=== PATIENT | male | born 1960 | race Caucasian/White ===

== ENCOUNTER 2017-07-12 03:21 | Emergency (ER) | payer MEDICAID ==
[~2017-07-12] VITALS: Ht 175.3 cm; Wt 107.0 kg
[2017-07-12 03:29] VITALS: Ht 175.3 cm; Wt 107.0 kg
[2017-07-12] MEDS ORDERED: SOD CHLORIDE 0.9% 1,000 ML IV STA (04:16)
[2017-07-12] MEDS ORDERED: KETOROLAC 30 MG INJ IV STA (04:16)
--- NOTE | 2017-07-12 05:23 | ERD ---
ER Documentation Chief Complaint Chief Complaint Lt back pain s/p getting up in bed 2hrs [employer]. Tylenol taken at 0215 HPI 57-year-old male presents here to emergency department for complaints of left lower back pain after after getting up in bed tonight. Patient describes the pain as sharp pain, 6/10 scale, as was upon movement, suddenly felt diaphoretic , was nauseated and felt slight dizziness. Patient denies any chest pain or palpitations. Patient denies any shortness of breath. Patient states that His blood pressure was lower at home. ROS All systems reviewed and are negative except as per history of present illness. Medications Home Meds Active Scripts Tamsulosin Hcl* (Flomax*) 0.4 Mg Cap.er.24h, 0.4 MG PO QPM, #30 CAP Prov:SRAVAN CARRION [facility] [employer] 07/12/17 Cyclobenzaprine Hcl* (Cyclobenzaprine Hcl*) 10 Mg Tablet, 10 MG PO TID, #15 TAB Prov:SRAVAN CARRION NP 07/12/17 Hydrocodone/Acetaminophen ([place] 5-325 Tablet) 1 Each Tablet, 1 TAB PO Q6H Y for SEVERE PAIN LEVEL 7-10, #20 TAB Prov:SRAVAN CARRION NP 07/12/17 Ibuprofen* (Motrin*) 600 Mg Tab, 600 MG PO Q6H Y for PAIN AND OR ELEVATED TEMP, #30 TAB Prov:SRAVAN CARRION NP 07/12/17 Reported Medications [none] Unknown Strength No Conflict Check 07/12/17 Allergies Allergies: Coded Allergies: No Known Allergy (Unverified , 07/12/17) PMhx/Soc Medical and Surgical Hx: pt denies Medical Hx, pt denies Surgical Hx History of Surgery: No Anesthesia Reaction: No Hx Neurological Disorder: No Hx Respiratory Disorders: No Hx Cardiac Disorders: No Hx Psychiatric Problems: No Hx Miscellaneous Medical Probl: No Hx Alcohol Use: No Hx Substance Use: No Hx Tobacco Use: No Smoking Status: Never smoker FmHx Family History: No coronary disease, No diabetes, No other Physical Exam Vitals Vital Signs Date Time Temp Pulse Resp B/P Pulse Ox O2 Delivery O2 Flow Rate FiO2 07/12/17 03:29 97.5 61 20 139/75 100 Physical Exam GENERAL: The patient is well developed and appropriate for usual state of health, in no apparent distress. CHEST: Clear to auscultation bilaterally. There are no rales, wheezes or rhonchi. HEART: Regular rate and rhythm. No murmurs, clicks, rubs or gallops. No S3 or S4. ABDOMEN: Soft, nontender and nondistended. Good bowel sounds. No rebound or guarding. No gross peritonitis. No gross organomegaly or masses. No Corley sign or McBurney point tenderness. BACK: No midline or flank tenderness. Muscle spasms noted in the left paraspinal aspect of the lumbar spine, able to do full range of motion without any restriction. EXTREMITIES: Equal pulses bilaterally. There is no peripheral clubbing, cyanosis or edema. No focal swelling or erythema. Full range of motion. Grossly neurovascularly intact. NEURO: Alert and oriented. Cranial nerves 2-12 intact. Motor strength in all 4 extremities with 5/5 strength. Sensation grossly intact. Normal speech and gait. SKIN: There is no apparent rash or petechia. The skin is warm and dry. HEMATOLOGIC AND LYMPHATIC: There is no evidence of excessive bruising or lymphedema. No gross cervical, axillary, or inguinal lymphadenopathy. Result Diagram: 07/12/17 0445 07/12/17 0445 Results 24 hrs Laboratory Tests Test 07/12/17 04:30 07/12/17 04:45 Urine Color YELLOW Urine Clarity CLEAR Urine pH 5.0 Urine Specific [place] 1.023 Urine Ketones NEGATIVEmg/dL Urine Nitrite NEGATIVEmg/dL Urine Bilirubin NEGATIVEmg/dL Urine Urobilinogen NEGATIVEmg/dL Urine Leukocyte Esterase NEGATIVELeu/ul Urine Microscopic RBC 104/HPF Urine Microscopic WBC 2/HPF Urine Mucus FEW/HPF Urine Hemoglobin 3+mg/dL Urine Glucose NEGATIVEmg/dL Urine Total Protein NEGATIVEmg/dl White Blood Count 13.810^3/ul Red Blood Count 4.9110^6/ul Hemoglobin 15.2g/dl Hematocrit 43.7% Mean Corpuscular Volume 89.0fl Mean Corpuscular Hemoglobin 31.0pg Mean Corpuscular Hemoglobin Concent 34.8g/dl Red Cell Distribution Width 12.6% Platelet Count 97518^3/UL Mean Platelet Volume 9.8fl Neutrophils % 83.9% Lymphocytes % 10.5% Monocytes % 3.7% Eosinophils % 0.9% Basophils % 0.6% Nucleated Red Blood Cells % 0.0/100WBC Neutrophils # 11.510^3/ul Lymphocytes # 1.410^3/ul Monocytes # 0.510^3/ul Eosinophils # 0.110^3/ul Basophils # 0.110^3/ul Nucleated Red Blood Cells # 0.010^3/ul Sodium Level 144mmol/L Potassium Level 3.6mmol/L Chloride Level 103mmol/L Carbon Dioxide Level 26mmol/L Anion Gap 19 Blood Urea Nitrogen 18mg/dl Creatinine 1.31mg/dl Glucose Level 144mg/dl Calcium Level 9.1mg/dl Total Bilirubin 0.7mg/dl Direct Bilirubin 0.00mg/dl Indirect Bilirubin 0.7mg/dl Aspartate Amino Transf (AST/SGOT) 24IU/L Alanine Aminotransferase (ALT/SGPT) 24IU/L Alkaline Phosphatase 128IU/L Total Protein 7.9g/dl Albumin 4.9g/dl Globulin 3.00g/dl Albumin/Globulin Ratio 1.63 Lipase 99U/L Current Medications Medications (Trade) Dose Ordered Sig/Андрей Route PRN Reason Start Time Stop Time Status Last Admin Dose Admin Sodium Chloride (NS) 1,000 ml @ 1,000 mls/hr Q1H STAT IV 07/12/17 04:16 07/12/17 05:15 DC 07/12/17 05:01 Ketorolac Tromethamine (Toradol) 30 mg ONCE STAT IV 07/12/17 04:16 07/12/17 04:18 DC 07/12/17 05:25 Lorazepam 0.5 mg 0.5 mg ONCE ONCE IV 07/12/17 06:00 07/12/17 06:01 DC 07/12/17 05:47 Sodium Chloride (NS) 100 ml @ ud STK-MED ONCE .ROUTE 07/12/17 05:59 07/12/17 06:00 DC Iohexol (Omnipaque 300mg/ ml) 150 ml STK-MED ONCE .ROUTE 07/12/17 05:59 07/12/17 06:00 DC Patient was given medication for pain here in emergency department, after treatment, patient verbalized feeling much better. Patient's pain is improved. Normal saline IV bolus was given here in emergency department for rehydration, patient tolerated IV fluids. PROCEDURE: CT L-Spine. CLINICAL INDICATION: Low back pain TECHNIQUE: A CT of the lumbar spine was performed on a [employer] 64-slice CT scanner utilizing high-resolution thin section axial images from the thoracic lumbar junction through the lumbar sacral junction. Sagittal and coronal and multiplanar reformatted images were made. The CTDIvol is 38.55 mGy and the DLP is 1412.53 mGycm. One of the following 3 dose reduction techniques were used during this CT examination: 1) Automated exposure control 2) Adjustment of the mA +/- kV according to patient size or 3) Use of iterative reconstruction technique COMPARISON: None available FINDINGS: The visualized spine alignment is normal. Preservation of vertebral body heights and disc spaces are noted. No acute fractures or traumatic subluxations are present. The bilateral posterior elements are intact and well aligned. The paravertebral soft tissues are normal. Minimal calcifications are present of the infrarenal abdominal aorta. Transitional anatomy is present. The inferior most disc is designated as L5-S1 . The specific axial levels are as follows: T12-L1: The intervertebral disc is normal. The central canal, subarticular recess and neural foramen are patent. L1-2: The intervertebral discs is normal. The central canal, subarticular recess and neural foramen are patent. L2-3: The intervertebral disc is normal. A mild 2 mm broad-based bulge is present. The central canal, subarticular recess and neural foramen are patent. L3-4: The intervertebral discs is normal with a mild 2 mm broad-based bulge. The central canal, subarticular recess, and neural foramen are patent. L4-5: The intervertebral discs is normal with a mild 2 mm annular bulge. A superimposed 4 mm central disc protrusion is present. AP canal dimension is 7.8 mm. Mild bilateral facet arthropathy right greater than left and vacuum facets are noted. The above findings results in a mild to moderate central canal stenosis, mild bilateral subarticular recess stenosis and mild bilateral neural foraminal stenosis. L5-1: Transitional anatomy is present. The central canal, subarticular recess and neural foramen are patent. IMPRESSION: 1. No acute fractures or traumatic subluxations. 2. Transitional anatomy. 3. 4 mm central disc protrusion at L4-5 with mild to moderate central canal stenosis. 4. Multilevel mild broad-based bulges at L2-3 through L4-5. 5. Mild bilateral subarticular recess and neural foraminal stenosis at L4-5. RPTAT: HDC .Maggie Banegas MD, MD Date Time Electronically viewed and signed by .Maggie Banegas MD, on 07/12/2017 05: 28 .C/ CC: SRAVAN CARRINO [facility] SU[facility] Procedures/MDM Medical Decision Making: Patient's pain is most likely consistent with a back strain can be from renal colic since patient has blood in the urine.. There is no suspicion for neurovascular compromise. Patient has intact sensation and circulation of the affected extremity and distal extremities. No incontinence, no suspicion for cauda equina syndrome, no saddle anesthesia, no symptoms of any acute bacterial infection, no symptoms of any perirectal abscesses, pilonidal cyst.There is low suspicion for septic arthritis. Patient does not have any fever. No symptoms of any aortic dissection or aortic aneurysm. Radiology exam not indicated at this time. Being CT scan of the abdomen and pelvis with IV contrast at this time, will be sent up to [facility] to rule out aortic dissection or aneurysm any emergent abdominal pathology. Disposition: Home. Patient is given prescription for ibuprofen for mild to moderate pain, [place] for severe pain, Flexeril for muscle spasm tamsulosin. Patient was advised to avoid heavy lifting , apply warm compresses on affected area. Patient was advised that if symptoms are worse, numbness, tingling, high fever, unable to move joint, worsening symptoms, to return to emergency department immediately. Otherwise, patient is advised to follow up with the primary care doctor in 5-7 days for reevaluation of symptoms. Disclaimer: Inadvertent spelling and grammatical errors are likely due to EHR/ dictation software use and do not reflect on the overall quality of patient care. Also, please note that the electronic time recorded on this note does not necessarily reflect the actual time of the patient encounter. Departure Diagnosis: Primary Impression: Back pain Back pain location: low back pain Chronicity: acute Back pain laterality: right Sciatica presence: without sciatica Qualified Code: M54.5 - Acute right-sided low back pain without sciatica Condition: Stable SRAVAN CARRION NP Jul 12, 2017 05:23
--- NOTE | 2017-07-12 05:29 | RADRPT ---
PROCEDURE: CT L-Spine. CLINICAL INDICATION: Low back pain TECHNIQUE: A CT of the lumbar spine was performed on a [employer] 64-slice CT scanner utilizing high-resolution thin section axial images from the thoracic lumbar junction through the lumbar sacr al junction. Sagittal and coronal and multiplanar reformatted images were made. The CTDIvol is 38.5 5 mGy and the DLP is 1412.53 mGycm. One of the following 3 dose reduction techniques were used during this CT examination: 1) Automated exposure control 2) Adjustment of the mA +/- kV according to patient size or 3) Use of iterative reconstruction technique COMPARISON: None available FINDINGS: The visualized spine alignment is normal. Preservation of vertebral body heights and disc spaces are noted. No acute fractures or traumatic subluxations are present. The bilateral posterior elements a re intact and well aligned. The paravertebral soft tissues are normal. Minimal calcifications are pr esent of the infrarenal abdominal aorta. Transitional anatomy is present. The inferior most disc is designated as L5-S1 . The specific axial levels are as follows: T12-L1: The intervertebral disc is normal. The central canal, subarticular recess and neural forame n are patent. L1-2: The intervertebral discs is normal. The central canal, subarticular recess and neural foramen are patent. L2-3: The intervertebral disc is normal. A mild 2 mm broad-based bulge is present. The central canal , subarticular recess and neural foramen are patent. L3-4: The intervertebral discs is normal with a mild 2 mm broad-based bulge. The central canal, suba rticular recess, and neural foramen are patent. L4-5: The intervertebral discs is normal with a mild 2 mm annular bulge. A superimposed 4 mm central disc protrusion is present. AP canal dimension is 7.8 mm. Mild bilateral facet arthropathy right gr eater than left and vacuum facets are noted. The above findings results in a mild to moderate centra l canal stenosis, mild bilateral subarticular recess stenosis and mild bilateral neural foraminal st enosis. L5-1: Transitional anatomy is present. The central canal, subarticular recess and neural foramen are patent. IMPRESSION: 1. No acute fractures or traumatic subluxations. 2. Transitional anatomy. 3. 4 mm central disc protrusion at L4-5 with mild to moderate central canal stenosis. 4. Multilevel mild broad-based bulges at L2-3 through L4-5. 5. Mild bilateral subarticular recess and neural foraminal stenosis at L4-5. RPTAT: HDC .Maggie Banegas MD, MD Date Time Electronically viewed and signed by .Maggie Banegas MD, MD on 07/12/2017 05:28 .C/
[2017-07-12] MEDS ORDERED: HYDR-906 PO (05:56)
[2017-07-12] MEDS ORDERED: CYCL-319 PO (05:56)
[2017-07-12] MEDS ORDERED: IBUP-1542 PO (05:56)
[2017-07-12] MEDS ORDERED: TAMS-14 PO (05:59)
[2017-07-12] MEDS ORDERED: IOHEXOL 300MG/ML 150 ML BTL ONE (05:59)
[2017-07-12] MEDS ORDERED: SOD CHLORIDE 0.9% 100 ML ONE (05:59)
[2017-07-12] MEDS ORDERED: LORAZEPAM 2 MG INJ IV ONE (06:00)
--- NOTE | 2017-07-12 06:30 | RADRPT ---
PROCEDURE: CT abdomen and pelvis with contrast. CLINICAL INDICATION: Back pain TECHNIQUE: CT scan of the abdomen and pelvis without contrast was performed on a 64-slice CT [facility] utilizing axial imaging from the lung bases through the pubis symphysis. The patient was scanned after the uneventful intravenous administration of 100 cc of Omnipaque-300. Sagittal and coronal r eformatted images were made. CTDI vol 23.31 mGy and DLP 1548.77 mGy-cm One of the following 3 does reduction techniques were used during this CT examination: 1) Automated exposure control 2) Adjustment of the mA +/- kV according to patient size or 3) Use of iterative reconstruction technique COMPARISON: Lumbar spine CT same date FINDINGS: CT abdomen: The lung bases are clear. The visualized heart size is normal. No pericardial or pleural effusions are present. The visualized liver, spleen, pancreas, gallbladder, and bilateral adrenal glands are n ormal. The right kidney is normal without evidence for hydroureteronephrosis or nephroureterolithiasis. Mil d left hydroureteronephrosis is present secondary to a left ureterovesicular junction calculus measu ring 3 x 3 mm. Mild left perinephric stranding is noted. The visualized aorta demonstrates mild vascular calcifications without aneurysmal dilatation. The visualized bowel is normal. No evidence for bowel obstruction, diverticulosis, diverticulitis is present. No evidence for ascites or pneumoperitoneum is present. No evidence for retroperitoneal or pathologi c lymphadenopathy is present. CT pelvis: The visualized bowel, including the appendix, is normal in appearance. No mass, lymphadenopathy, or free fluid is seen. There is no evidence of free air. The urinary bladder is well distended. The p rostate gland is normal size with mild prostatic calcifications. The surrounding osseous structures are remarkable for mild degenerative changes of the imaged spine and the bilateral sacroiliac joints. IMPRESSION: 1. Mild left hydroureteronephrosis secondary to a 3 mm left ureterovesicular junction calculus. 2. Mild atherosclerotic vascular disease 3. Mild degenerative changes of the imaged spine A call report was made to SARATH Meade at 07/12/2017 6:30:06 AM following the completion of the exa mination by the undersigned. RPTAT: HDC .Maggie Banegas MD, MD Date Time Electronically viewed and signed by .Maggie Banegas MD, MD on 07/12/2017 06:30 .C/
--- NOTE | 2017-07-12 06:48 | EN ---
Date/Time of Note Date/Time of Note DATE: 07/12/17 TIME: 06:44 ER Progress Note Signed out to me by Qing Beckham NP pending CT abdomen pelvis results. Patient noted to have mild left hydronephrosis with a 3 mm calculus at the left UVJ. His creatinine is 1.31, mildly elevated. I discussed patient with Dr. Franklin, who states the patient can be follow-up with outpatient urologist. Patient is discharged home with instructions by Qing Beckham NP. Condition at time of discharge: Improved. PROCEDURE: CT abdomen and pelvis with contrast. CLINICAL INDICATION: Back pain TECHNIQUE: CT scan of the abdomen and pelvis without contrast was performed on a 64-slice CT scanner utilizing axial imaging from the lung bases through the pubis symphysis. The patient was scanned after the uneventful intravenous administration of 100 cc of Omnipaque-300. Sagittal and coronal reformatted images were made. CTDI vol 23.31 mGy and DLP 1548.77 mGy-cm One of the following 3 does reduction techniques were used during this CT examination: 1) Automated exposure control 2) Adjustment of the mA +/- kV according to patient size or 3) Use of iterative reconstruction technique COMPARISON: Lumbar spine CT same date FINDINGS: CT abdomen: The lung bases are clear. The visualized heart size is normal. No pericardial or pleural effusions are present. The visualized liver, spleen, pancreas, gallbladder, and bilateral adrenal glands are normal. The right kidney is normal without evidence for hydroureteronephrosis or nephroureterolithiasis. Mild left hydroureteronephrosis is present secondary to a left ureterovesicular junction calculus measuring 3 x 3 mm. Mild left perinephric stranding is noted. The visualized aorta demonstrates mild vascular calcifications without aneurysmal dilatation. The visualized bowel is normal. No evidence for bowel obstruction, diverticulosis, diverticulitis is present. No evidence for ascites or pneumoperitoneum is present. No evidence for retroperitoneal or pathologic lymphadenopathy is present. CT pelvis: The visualized bowel, including the appendix, is normal in appearance. No mass , lymphadenopathy, or free fluid is seen. There is no evidence of free air. The urinary bladder is well distended. The prostate gland is normal size with mild prostatic calcifications. The surrounding osseous structures are remarkable for mild degenerative changes of the imaged spine and the bilateral sacroiliac joints. IMPRESSION: 1. Mild left hydroureteronephrosis secondary to a 3 mm left ureterovesicular junction calculus. 2. Mild atherosclerotic vascular disease 3. Mild degenerative changes of the imaged spine ROBERTA CEJA NP Jul 12, 2017 06:48
[2017-07-12 07:07] VITALS: BP 141/73; PULSE 73; RESP 20; TEMP 98
== END 2017-07-12 07:08 | disposition home or self-care (01) ==
LOC: FTE 03:21
DX: M54.5 Low back pain (principal); R07.9 Chest pain, unspecified
CPT/HCPCS: 36415; 72131; 74177; 80053; 81001; 83690; 85025; 93005; 96374; 96375; J1885; J2060; J7030; Q9967; Z7502; Z7610

== ENCOUNTER 2019-07-10 16:16 | Emergency (ER) | payer MEDICAID ==
[~2019-07-10] VITALS: Ht 152.4 cm; Wt 110.0 kg
[~2019-07-10 16:16] MED LIST: HYDR-4011 PO; IBUP-1542 PO; TAMS-14 PO
[2019-07-10 16:20] VITALS: Ht 152.4 cm; Wt 110.0 kg
[2019-07-10] MEDS ORDERED: SOD CHLORIDE 0.9% 500 ML IV STA (16:33)
[2019-07-10 21:54] VITALS: BP 130/70; PULSE 60; RESP 17
== END 2019-07-10 22:23 | disposition home or self-care (01) ==
LOC: E/R 16:16
DX: N20.0 Calculus of kidney (principal); R00.1 Bradycardia, unspecified; E11.9 Type 2 diabetes mellitus without complications; Z85.3 Personal history of malignant neoplasm of breast
CPT/HCPCS: 36415; 74176; 76775; 80053; 81001; 82962; 83690; 84484; 85025; 93005; J7040; Z7502